=== PATIENT | female | born 1995 | race African-American/Black ===

== ENCOUNTER 2016-03-03 20:42 | Emergency (ER) | payer OTHER, SELFPAY ==
[2016-03-03] MEDS ORDERED: ALPRAZolam 0.5 MG TAB ONE (20:58)
[2016-03-03] MEDS ORDERED: AMOXicillin 250 MG CAP ONE (20:58)
[2016-03-03] MEDS ORDERED: HYDROcodone/Acetaminophen 5/325 mg Tablet ONE (20:58)
--- NOTE | 2016-03-03 21:37 | ERRECORD ---
[facility] EMERGENCY RECORD PAST MEDICAL HISTORY (20:51 BMAD) MEDICAL HISTORY: Notes: Diabetes, Hypertension, Flu vaccine not up to date, Tetanus not up to date, Pneumococcal vaccine not up to date. FEMALE SURGICAL HISTORY: Patient has no surgical history. PSYCHIATRIC HISTORY: No previous psychiatric history. SOCIAL HISTORY: Patient drinks socially, every week, Alcohol history notes: twice a week, Patient denies drug use, Patient has no smoking history. KNOWN ALLERGIES No Known Allergies (Unconfirmed) No Known Drug Allergies (Unconfirmed) CURRENT MEDICATIONS (20:52 BMAD) metFORMIN: TABLET : Strength - 500 mg : ORAL Patient Dose: UNK mg Oral once a day. ibuprofen: TABLET : Strength - 800 mg : ORAL Patient Dose: 1 tab(s) Oral every 8 hours PRN. lisinopril: TABLET : Strength - 10 mg : ORAL Patient Dose: unk mg Oral. VITAL SIGNS VITAL SIGNS: BP: 139/98, Pulse: 94, Resp: 16, Temp: 98.4 (Oral), Pain: 8, O2 sat: 98 on Room Air, Time: 03/03/2016 20:47. (20:47 BMAD) BP: 135/109, Pulse: 88, Resp: 16, Pain: 8, O2 sat: 99 on ra, Time: 03/03/2016 21:02. (21:02 BMAD) MEDICATION ADMINISTRATION SUMMARY Drug Name: HYDROcodone-acetaminophen, Dose Ordered: 5/325 mg, Route: Oral, Status: Given, Time: 21:01 03/03/2016, Drug Name: Amoxil, Dose Ordered: 500 mg, Route: Oral, Status: Given, Time: 21:01 03/03/2016, Detailed record available in Medication Service section. PROBLEM LIST No recorded problems DIAGNOSIS (20:59 MBRI) FINAL: PRIMARY: dental infection - periapical abscess. PRESCRIPTION (20:58 MBRI) acetaminophen-codeine: TABLET : 300 mg-30 mg : ORAL : Quantity: 1 Unit: tab(s) Route: ORAL Schedule: every 4 hours prn Dispense: 20 May substitute. Refills: No Refills . &a-1R&a+25V*p+0X*h3890X*c202B*c15G*c2P*p-0X&a-25V&a+1R Name: Sandy Miller : 1995 F20 MedRec: [id number] AcctNum: [id number] Prepared: ThuMar 03, 2016 21:11 by Interface Page 1 of 2 pMD [facility] EMERGENCY RECORD NOTES: No refills. PC Pen V K: TABLET : 500 mg : ORAL : Quantity: 1 Unit: tab(s) Route: ORAL Schedule: 4 times a day Dispense: 40 May substitute. Refills: No Refills . NOTES: ^s=No refills No refills. DISPOSITION PATIENT: Disposition Type: Discharge, Disposition: *Discharge Home, Condition: Good. (20:59 MBRI) Patient left the department. (21:06 BMAD) Gillespie: BMHAI=JONATHAN Rogers, Patrick MBRI=DO Singh Matthew &a-1R&a+25V*p+0X*[id number]*c202B*c15G*c2P*p-0X&a-25V&a+1R Name: Sandy Miller : 1995 F20 MedRec: [id number] AcctNum: [id number] Prepared: ThuMar 03, 2016 21:11 by Interface Page 2 of 2 pMD MTDD
--- NOTE | 2016-03-03 21:43 | PICIS ---
[facility] EMERGENCY RECORD TRIAGE (ThuMar 03, 2016 20:49 BMAD) TRIAGE NOTES: pt stating she has had dental pain associated with a headache since yesterday. (ThuMar 03, 2016 20:49 BMAD) PATIENT: NAME: Sandy Miller, AGE: 20, GENDER: female, : Thu1995, TIME OF GREET: ThuMar 03, 2016 20:42, PREFERRED LANGUAGE: [place], ETHNICITY: Not or , ECODE BILLING MAP: [facility], SSN: [id number], Zip Code: [address], KG WEIGHT: 158.30, PHONE: , , , PERSON ID: [id number], PCP: Xavier Jalloh /Salv[place]. (ThuMar 03, 2016 20:49 BMAD) COMPLAINT: Headache/Dental Pain. (ThuMar 03, 2016 20:49 BMAD) ADMISSION: URGENCY: 4 Non Urgent, ADMISSION SOURCE: Home, TRANSPORT: Walk-in, BED: ER -03. (ThuMar 03, 2016 20:49 BMAD) IMMUNIZATIONS: Flu vaccine not up to date, Tetanus not up to date, Pneumococcal vaccine not up to date. (20:51 BMAD) SIRS SCORING: Heart Rate 55-109 (0), Temp range 96.8-101.1 (0), respiratory rate 12-24 (0), Mental Status altered: no (0), Infection or Suspected Infection: No. (20:51 BMAD) TREATMENTS IN PROGRESS: Medications Given, 1600 Tylenol #3. (20:51 BMAD) PROVIDERS: TRIAGE NURSE: Patrick Rogers RN. (ThuMar 03, 2016 20:49 BMAD) VITAL SIGNS: BP 139/98, Pulse 94, Resp 16, Temp 98.4, (Oral), Pain 8, O2 Sat 98, on Room Air, Time 03/03/2016 20:47. (20:47 BMAD) PREVIOUS VISIT ALLERGIES: No Known Drug Allergies. (ThuMar 03, 2016 20:49 BMAD) No Known Drug Allergies. (20:51 BMAD) KNOWN ALLERGIES No Known Allergies (Unconfirmed) No Known Drug Allergies (Unconfirmed) CURRENT MEDICATIONS (20:52 BMAD) metFORMIN: TABLET : Strength - 500 mg : ORAL Patient Dose: UNK mg Oral once a day. ibuprofen: TABLET : Strength - 800 mg : ORAL Patient Dose: 1 tab(s) Oral every 8 hours PRN. lisinopril: TABLET : Strength - 10 mg : ORAL Patient Dose: unk mg Oral. VITAL SIGNS VITAL SIGNS: BP: 139/98, Pulse: 94, Resp: 16, Temp: 98.4 (Oral), Pain: 8, O2 sat: 98 on Room Air, Time: 03/03/2016 20:47. (20:47 BMAD) BP: 135/109, Pulse: 88, Resp: 16, Pain: 8, O2 sat: 99 on ra, Time: 03/03/2016 21:02. (21:02 BMAD) &a-1R&a+25V*p+0X*g1485W*c202B*c15G*c2P*p-0X&a-25V&a+1R Name: Sandy Miller : 1995 F20 MedRec: [id number] AcctNum: [id number] Prepared: ThuMar 03, 2016 21:18 by Interface Page 1 of 4 pMD [facility] EMERGENCY RECORD NURSING ASSESSMENT: DENTAL (20:52 BMAD) CONSTITUTIONAL: Complex assessment performed, Patient arrives ambulatory, Gait steady, History obtained from patient, Patient appears, uncomfortable, Patient cooperative, Patient alert, Oriented to person, place and time, Skin warm, Skin dry, Skin normal in color, Mucous membranes pink, Mucous membranes moist, Patient is well-groomed, Patient complains of Dental Pain, Pt stating she began having dental pain on left side yesterday associated with a headache. pt stating she has been having a foul taste in her mouth as well. PAIN: nagging pain, sharp pain, to left lower back tooth (teeth), Onset of pain x 1 day, on a scale 0-10 patient rates pain as 8. DENTAL: Dental assessment findings include mouth with, poor dental hygiene, bad breath (halitosis), foul taste in mouth, Teeth abnormal:, avulsed primary tooth (teeth), no associated malocclusion of jaw, no associated bleeding, Associated with, swelling to the left jaw, Notes: pt to see dentist next week. NURSING PROCEDURE: DISCHARGE NOTE (21:02 BMAD) DISCHARGE: Patient discharged to home, ambulating without assistance, family driving, accompanied by other family member, Summary of Care printed/ provided, Patient requested and was provided an electronic copy of Discharge Instructions, Transition record given to patient, Discharge instructions given to patient, Simple or moderate discharge teaching performed, by Patrick CASTILLO, Prescriptions given and instructions on side effects given, Name of prescription(s) given: tylenol #3, PC Pen VK, Above person(s) verbalized understanding of discharge instructions and follow-up care, Patient discharged by, Dr. Singh. BELONGINGS: Belongings and valuables with patient at time of discharge include:, Belongings remain with patient, Valuables remain with patient. VITAL SIGNS: BP: 135, / 109, Pulse: 88, Resp: 16, Pain: 8, O2 sat: 99, on: ra. MEDICATION ADMINISTRATION SUMMARY Drug Name: HYDROcodone-acetaminophen, Dose Ordered: 5/325 mg, Route: Oral, Status: Given, Time: 21:03/03/2016, Drug Name: Amoxil, Dose Ordered: 500 mg, Route: Oral, Status: Given, Time: 21:03/03/2016, Detailed record available in Medication Service section. MEDICATION SERVICE (21:01 [facility]) Amoxil: Order: Amoxil (amoxicillin trihydrate) - Dose: 500 mg : Oral Schedule: Now &a-1R&a+25V*p+0X*g7743K*c202B*c15G*c2P*p-0X&a-25V&a+1R Name: Sandy Miller Nas : 1995 F20 MedRec: [id number] AcctNum: [id number] Prepared: ThuMar 03, 2016 21:18 by Interface Page 2 of 4 pMD [facility] EMERGENCY RECORD Ordered by: Matt Singh DO Entered by: Matt Singh DO ThuMar 03, 2016 20:57 , Acknowledged by: Patrick Rogers RN ThuMar 03, 2016 20:58 Documented as given by: Patrick Rogers RN ThuMar 03, 2016 21:01 Patient, Medication, Dose, Route and Time verified prior to administration. Amount given: 500mg, Site: Medication administered P.O., Correct patient, time, route, dose and medication confirmed prior to administration, Patient advised of actions and side-effects prior to administration, Allergies confirmed and medications reviewed prior to administration. HYDROcodone-acetaminophen: Order: HYDROcodone-acetaminophen (hydrocodone bitartrate/acetaminophen) - Dose: 5/325 mg : Oral Ordered by: Matt Singh DO Entered by: Matt Singh DO ThuMar 03, 2016 20:56 , Acknowledged by: Patrick Rogers RN ThuMar 03, 2016 20:58 Documented as given by: Patrick Rogers RN ThuMar 03, 2016 21:01 Patient, Medication, Dose, Route and Time verified prior to administration. Amount given: 5/325mg, Site: Medication administered P.O., Patient appears Awake and alert- acceptable, Correct patient, time, route, dose and medication confirmed prior to administration, Patient advised of actions and side-effects prior to administration, Allergies confirmed and medications reviewed prior to administration, Patient in position of comfort, Side rails up, Cart in lowest position, Family at bedside. PAST MEDICAL HISTORY (20:51 BMAD) MEDICAL HISTORY: Notes: Diabetes, Hypertension, Flu vaccine not up to date, Tetanus not up to date, Pneumococcal vaccine not up to date. FEMALE SURGICAL HISTORY: Patient has no surgical history. PSYCHIATRIC HISTORY: No previous psychiatric history. SOCIAL HISTORY: Patient drinks socially, every week, Alcohol history notes: twice a week, Patient denies drug use, Patient has no smoking history. EVENTS TRANSFER: Triage to Emergency Emergency Room -03. (ThuMar 03, 2016 20:49 BMAD) Removed from Emergency Emergency Room -03. (21:06 BMAD) PROBLEM LIST No recorded problems DIAGNOSIS (20:59 MBRI) FINAL: PRIMARY: dental infection - periapical abscess. DISPOSITION &a-1R&a+25V*p+0X*l5350P*c202B*c15G*c2P*p-0X&a-25V&a+1R Name: Sandy Miller : 1995 F20 MedRec: [id number] AcctNum: [id number] Prepared: ThuMar 03, 2016 21:18 by Interface Page 3 of 4 D [facility] EMERGENCY RECORD PATIENT: Disposition Type: Discharge, Disposition: *Discharge Home, Condition: Good. (20:59 MBRI) Patient left the department. (21:06 BMAD) INSTRUCTION (20:59 MBRI) DISCHARGE: DENTAL ABSCESS. FOLLOWUP: [facility], /Joey Franco, [address] [place] [address], , Follow up with Primary Care Physician as needed. SPECIAL: Please return for any further issues or concerns, we would be happy to see you. We hope you feel better soon. Follow-up with your primary physician as needed and with a dentist of your choosing as soon as possible. Tylenol or Advil for Pain May return to work. PRESCRIPTION (20:58 MBRI) acetaminophen-codeine: TABLET : 300 mg-30 mg : ORAL : Quantity: 1 Unit: tab(s) Route: ORAL Schedule: every 4 hours prn Dispense: 20 May substitute. Refills: No Refills . NOTES: No refills. PC Pen V K: TABLET : 500 mg : ORAL : Quantity: 1 Unit: tab(s) Route: ORAL Schedule: 4 times a day Dispense: 40 May substitute. Refills: No Refills . NOTES: ^s=No refills No refills. IMAGING (21:14 BMAD) *SUPPLY CHARGE SHEET: Image captured from scanner. *DISCHARGE INSTRUCTIONS RECEIPT: Image captured from scanner. Gillespie: BMAD=JONATHAN Rogers Blake MBRI=DO Singh Matthew &a-1R&a+25V*p+0X*t5386I*c202B*c15G*c2P*p-0X&a-25V&a+1R Name: Sandy Miller : 1995 F20 MedRec: [id number] AcctNum: [id number] Prepared: ThuMar 03, 2016 21:18 by Interface Page 4 of 4 pMD [facility] MEDICATION RECONCILIATION You were seen in the Emergency Department on: ThuMar 03, 2016 KNOWN ALLERGIES No Known Allergies (Unconfirmed) No Known Drug Allergies (Unconfirmed) MEDICATIONS GIVEN WHILE IN THE EMERGENCY DEPARTMENT HYDROcodone-acetaminophen (hydrocodone bitartrate/acetaminophen) - Dose: 5/325 milligram(s) : Oral Amoxil (amoxicillin trihydrate) - Dose: 500 milligram(s) : Oral HOME MEDICATIONS CONTINUE PRESCRIBED ibuprofen : TABLET : Strength - 800 mg : ORAL Continue as prescribed Patient had been takin tab(s) Oral every 8 hours PRN. lisinopril : TABLET : Strength - 10 mg : ORAL Continue as prescribed Patient had been taking: unk mg Oral. metFORMIN : TABLET : Strength - 500 mg : ORAL Continue as prescribed Patient had been taking: UNK mg Oral once a day. Notes from the emergency department Reviewed with patient PRESCRIPTIONS (2) Printed (2) acetaminophen-codeine : TABLET : 300 mg-30 mg : ORAL Quantity: 1, Unit: tab(s), Route: ORAL, Schedule: every 4 hours prn, Dispense: 20 &a-1R&a+25V*p+0X*q6693C*c202B*c15G*c2P*p-0X&a-25V&a+1R Name: Sandy Miller : 1995 F20 MedRec: [id number] AcctNum: [id number] Prepared: ThuMar 03, 2016 21:18 by Interface Thu OMALLEY
== END 2016-03-03 21:01 | disposition home or self-care (01) ==
LOC: BURERS 20:42
DX: K04.7 Periapical abscess without sinus (principal); E11.9 Type 2 diabetes mellitus without complications; I10 Essential (primary) hypertension; Z79.899 Other long term (current) drug therapy
CPT/HCPCS: 99282

== ENCOUNTER 2016-03-26 09:08 | Emergency (ER) | payer SELFPAY ==
[2016-03-26] MEDS ORDERED: Benzonatate 100 MG CAP ONE (09:19)
[2016-03-26] MEDS ORDERED: Dexamethasone 4 mg/ml Vial ONE (09:19)
--- NOTE | 2016-03-26 09:34 | ERRECORD ---
[facility] EMERGENCY RECORD HPI COUGH (09:21 [facility]) CHIEF COMPLAINT: Patient presents for evaluation of cough, non-productive. HISTORIAN: History provided by patient, 20F presents with complaints of 2 days of cough with pleuritic chest pain, and headache during coughing fits. Also reports 1 day of diarrhea. Denies abdominal pain, denies changes in urinary habits. Reports sore throat as well. LOCATION: Symptoms are generalized. QUALITY: Pain is dull in nature, described as aching. TIME COURSE: Gradual onset of symptoms, Symptoms are worsening. ASSOCIATED WITH: Associated with diarrhea, Associated with upper respiratory infection. EXACERBATED BY: Patient's condition exacerbated by nothing. RELIEVED BY: Patient's condition relieved by over the counter medications. ROS (09:23 [facility]) CONSTITUTIONAL: Negative constitutional review of systems, Historian denies chills, denies fever. ENT: Historian reports sore throat. CARDIOVASCULAR: Negative cardiovascular review of systems, Historian denies chest pain, denies palpitations. RESPIRATORY: Historian reports cough. GI: Historian reports diarrhea. GENITOURINARY FEMALE: Negative genitourinary review of systems, Historian denies dysuria, denies frequency. SKIN: Negative skin review of systems, Historian denies rash, denies skin changes. NEUROLOGIC: Negative neurologic review of systems, Historian denies headache. HEMO/LYMPHATIC: Normal hematologic/lymphatic system review, Historian denies abnormal blood clotting. PAST MEDICAL HISTORY (09:17 BGAR) MEDICAL HISTORY: Notes: Diabetes, Hypertension, Flu vaccine not up to date, Tetanus not up to date, Pneumococcal vaccine not up to date. FEMALE SURGICAL HISTORY: Patient has no surgical history. PSYCHIATRIC HISTORY: No previous psychiatric history. SOCIAL HISTORY: Patient drinks socially, Patient denies drug use, Patient has no smoking history. KNOWN ALLERGIES No Known Allergies (Unconfirmed) No Known Drug Allergies CURRENT MEDICATIONS (09:15 BGAR) metFORMIN: TABLET : Strength - 500 mg : ORAL &a-1R&a+25V*p+0X*j7204M*c202B*c15G*c2P*p-0X&a-25V&a+1R Name: Sandy Miller : 1995 F20 MedRec: [id number] AcctNum: [id number] Prepared: ThuMar 26, 2016 09:37 by Interface Page 1 of 3 pMD [facility] EMERGENCY RECORD Patient Dose: UNK mg Oral once a day. ibuprofen: TABLET : Strength - 800 mg : ORAL Patient Dose: 1 tab(s) Oral every 8 hours PRN. lisinopril: TABLET : Strength - 10 mg : ORAL Patient Dose: unk mg Oral. VITAL SIGNS (09:13 BGGA) VITAL SIGNS: BP: 111/89, Pulse: 111, Resp: 22, Temp: 99.9 (Oral), Pain: 0, O2 sat: 98 on Room Air, Time: 03/26/2016 09:13. PHYSICAL EXAM CONSTITUTIONAL: Pulse, tachycardic, Vital signs reviewed, Patient afebrile, Blood pressure normal, Respiratory rate normal, Patient appears non toxic, Patient appears pain free, Patient alert and oriented to person, place and time. (09:23 JJA) ENT: ENT exam normal. (09:24 JJAC) NECK: Neck exam normal, Neck exam included findings of normal range of motion, Trachea midline, no meningeal signs, no cervical adenopathy, no tenderness. (09:23 JJAC) RESPIRATORY CHEST: Respiratory and chest exam normal, Respiratory exam included findings of no respiratory distress, Breath sounds clear. (09:23 JJAC) CARDIOVASCULAR: Cardiovascular assessment normal, Cardiovascular exam included findings of heart rate regular rate and rhythm, Heart sounds normal. (09:23 JJAC) ABDOMEN FEMALE: Abdominal exam included findings of abdomen nontender, Bowel sounds normal, no distension, no mass, no pulsatile masses, no peritoneal signs, no rigidity, no guarding, no rebound, Rovsing's sign absent. (09:23 JJAC) BACK: Back exam normal, Back exam included findings of normal inspection, range of motion normal, no tenderness. (09:23 JJAC) NEURO: Neuro exam normal, Neuro exam findings include patient oriented to person, place and time, Speech normal, Gait normal. (09:23 JJAC) SKIN: Skin exam normal, Skin exam included findings of skin warm, dry, and normal in color, no rash. (09:23 JJAC) MEDICATION ADMINISTRATION SUMMARY Drug Name: Decadron oral, Dose Ordered: 10 mg, Route: Oral, Status: Given, Time: 09:25 03/26/2016, Drug Name: Elizabet Abbott, Dose Ordered: 100 mg, Route: Oral, Status: Given, Time: 09:24 03/26/2016, Detailed record available in Medication Service section. DOCTOR NOTES TEXT: Patient presented with signs and symptoms consistent &a-1R&a+25V*p+0X*v0437Z*c202B*c15G*c2P*p-0X&a-25V&a+1R Name: Sandy Miller : 1995 F20 MedRec: [id number] AcctNum: [id number] Prepared: ThuMar 26, 2016 09:37 by Interface Page 2 of 3 pMD [facility] EMERGENCY RECORD with viral syndrome. well appearing, non-toxic patient without evidence of concerning bacterial illness such as meningitis or pneumonia that would require further workup or investigation. Tolerating oral intake without difficulty. Appropriate for outpatient management with oral fluids and antipyretics. Needs follow up with primary physician in the next 2-3 days for re-evaluation. (09:24 [facility]) PATIENT STATUS: Patient has improved since arrival to emergency department. (09: [facility]) PATIENT PLAN: The patient will be discharged, The patient will follow up with primary care physician. (09: [facility]) PROBLEM LIST No recorded problems DIAGNOSIS (: [facility]) FINAL: PRIMARY: Acute bronchitis. PRESCRIPTION (09: [facility]) Elizabet Abbott: CAPSULE (HARD, SOFT, ETC.) : 100 mg : ORAL : Quantity: 1 Unit: tab(s) Route: ORAL Schedule: 3 times a day Dispense: 15 May substitute. Refills: No Refills . NOTES: No refills. DISPOSITION PATIENT: Disposition Type: Discharge, Disposition: *Discharge Home. (09: [facility]) Patient left the department. (09:31 LGIB) Gillespie: BGAR=JONATHAN Phillips, Berna JJAC=MD Mccall Jason LGIB=JONATHAN Melchor, Renae &a-1R&a+25V*p+0X*z5067W*c202B*c15G*c2P*p-0X&a-25V&a+1R Name: Sandy Miller : 1995 F20 MedRec: [id number] AcctNum: [id number] Prepared: [place] Mar 26, 2016 09:37 by Interface Page 3 of 3 pMD MTDD
--- NOTE | 2016-03-26 09:39 | PICIS ---
[facility] EMERGENCY RECORD TRIAGE (09:14 BGAR) TRIAGE NOTES: Pt reports cough, diarrhea, headache x 4 days. (09:14 BGAR) PATIENT: NAME: Sandy Miller, AGE: 20, GENDER: female, : Thu1995, TIME OF GREET: ThuMar 26, 2016 09:09, PREFERRED LANGUAGE: Greek, ETHNICITY: Not or , ECODE BILLING MAP: [facility], SSN: [id number], Zip Code: [address], KG WEIGHT: [phone] (est.), , , PERSON ID: [id number], PAYMENT: [employer] Self Pay, PCP: Export Joey. (09:14 BGAR) PHONE: . (09:21) COMPLAINT: Cough, headache, diarrhea. (09:14 BGAR) ADMISSION: URGENCY: 4 Non Urgent, ADMISSION SOURCE: Home, TRANSPORT: CAR, BED: ER -02. (09:14 BGAR) ASSESSMENT: Assessment: patient ambulatory to er bed 2. pt c/o cough, diarrhea, and headache, Symptoms began 4 days ago. (09:17 BGAR) PAIN: No complaint of pain. (09:17 BGAR) SIRS SCORING: Heart Rate 110-139 (2), Temp range 96.8-101.1 (0), respiratory rate 12-24 (0), Mental Status altered: no (0), Infection or Suspected Infection: No. (09:17 BGAR) TRIAGE SCREENING: Patient denies suicidal ideation, Patient denies presence of domestic violence. (09:17 BGAR) LMP: LMP: Unknown. (09:17 BGAR) PROVIDERS: TRIAGE NURSE: Berna Phillips RN. (09:14 BGAR) VITAL SIGNS: BP 111/89, Pulse 111, Resp 22, Temp 99.9, (Oral), Pain 0, O2 Sat 98, on Room Air, Time 03/26/2016 09:13. (09:13 BGAR) KNOWN ALLERGIES No Known Allergies (Unconfirmed) No Known Drug Allergies CURRENT MEDICATIONS (09:15 BGAR) metFORMIN: TABLET : Strength - 500 mg : ORAL Patient Dose: UNK mg Oral once a day. ibuprofen: TABLET : Strength - 800 mg : ORAL Patient Dose: 1 tab(s) Oral every 8 hours PRN. lisinopril: TABLET : Strength - 10 mg : ORAL Patient Dose: unk mg Oral. VITAL SIGNS (09:13 BGAR) VITAL SIGNS: BP: 111/89, Pulse: 111, Resp: 22, Temp: 99.9 (Oral), Pain: 0, O2 sat: 98 on Room Air, Time: 03/26/2016 09:13. NURSING ASSESSMENT: RESPIRATORY /CHEST (09:17 BGAR) CONSTITUTIONAL: Patient arrives ambulatory, Gait steady, History obtained from patient, Patient appears comfortable, Patient &a-1R&a+25V*p+0X*[id number]*c202B*c15G*c2P*p-0X&a-25V&a+1R Name: Sandy Miller : 1995 F20 MedRec: [id number] AcctNum: [id number] Prepared: ThuMar 26, 2016 09:37 by Interface Page 1 of 5 pMD [facility] EMERGENCY RECORD cooperative, Patient alert, Oriented to person, place and time, Skin warm, Skin dry, Skin normal in color, Mucous membranes pink, Mucous membranes moist. RESPIRATORY/CHEST: Breath sounds clear, Respiratory assessment findings include respiratory effort easy, Respirations regular, Conversing normally, Neck and chest exam findings include trachea midline, Chest expansion equal, Chest movement symmetrical, no signs of distress, Associated with cough, non-productive. ENT: Ear assessment findings include ear normal to inspection, Nasal assessment findings include nose normal to inspection, Sinuses normal, Nasal mucosa normal, Mouth and throat assessment findings include mouth inspection normal, Uvula normal, Tonsils normal, Mucous membranes pink, and moist, Able to swallow, Speech normal. SAFETY: Side rails up, Cart/Stretcher in lowest position, Family at bedside, Call light within reach, Hospital ID band on. NURSING PROCEDURE: DISCHARGE NOTE (09:30 LGIB) DISCHARGE: Patient discharged to home, ambulating without assistance, family driving, accompanied by other family member, Summary of Care printed/ provided, Patient requested and was provided an electronic copy of Discharge Instructions, Discharge instructions given to patient, Simple or moderate discharge teaching performed, Prescriptions given and instructions on side effects given, Above person(s) verbalized understanding of discharge instructions and follow-up care, Patient treated and evaluated by physician. BELONGINGS: Belongings and valuables with patient at time of discharge include:, Belongings remain with patient, Valuables remain with patient. MEDICATION ADMINISTRATION SUMMARY Drug Name: Decadron oral, Dose Ordered: 10 mg, Route: Oral, Status: Given, Time: 09:25 03/26/2016, Drug Name: Tessalon Perles, Dose Ordered: 100 mg, Route: Oral, Status: Given, Time: 09:24 03/26/2016, Detailed record available in Medication Service section. MEDICATION SERVICE Decadron oral: Order: Decadron oral (dexamethasone) - Dose: 10 mg : Oral Ordered by: Tai Mccall MD Entered by: Tai Mccall MD ThuMar 26, 2016 09:19 , Acknowledged by: Berna Phillips RN ThuMar 26, 2016 09:21 Documented as given by: Berna Phillips RN ThuMar 26, 2016 09:25 Patient, Medication, Dose, Route and Time verified prior to administration. Amount given: 10 mg, Patient appears Awake and alert- acceptable, Correct patient, time, route, dose and medication confirmed prior to administration, Patient advised of actions and side-effects prior to &a-1R&a+25V*p+0X*t5504C*c202B*c15G*c2P*p-0X&a-25V&a+1R Name: Sandy Miller : 1995 F20 MedRec: [id number] AcctNum: [id number] Prepared: ThuMar 26, 2016 09:37 by Interface Page 2 of 5 pMD [facility] EMERGENCY RECORD administration, Allergies confirmed and medications reviewed prior to administration, Patient in position of comfort, Side rails up, Cart in lowest position, Family at bedside. Tessalon Perles: Order: Tessalon Perles (benzonatate) - Dose: 100 mg : Oral Ordered by: Tai Mccall MD Entered by: Tai Mccall MD ThuMar 26, 2016 09:19 , Acknowledged by: Berna Phillips RN ThuMar 26, 2016 09:21 Documented as given by: Berna Phillips RN ThuMar 26, 2016 09:24 Patient, Medication, Dose, Route and Time verified prior to administration. Patient appears Awake and alert- acceptable, Correct patient, time, route, dose and medication confirmed prior to administration, Patient advised of actions and side-effects prior to administration, Allergies confirmed and medications reviewed prior to administration. HPI COUGH (09:21 [facility]) CHIEF COMPLAINT: Patient presents for evaluation of cough, non-productive. HISTORIAN: History provided by patient, 20F presents with complaints of 2 days of cough with pleuritic chest pain, and headache during coughing fits. Also reports 1 day of diarrhea. Denies abdominal pain, denies changes in urinary habits. Reports sore throat as well. LOCATION: Symptoms are generalized. QUALITY: Pain is dull in nature, described as aching. TIME COURSE: Gradual onset of symptoms, Symptoms are worsening. ASSOCIATED WITH: Associated with diarrhea, Associated with upper respiratory infection. EXACERBATED BY: Patient's condition exacerbated by nothing. RELIEVED BY: Patient's condition relieved by over the counter medications. ROS (09:23 [facility]) CONSTITUTIONAL: Negative constitutional review of systems, Historian denies chills, denies fever. ENT: Historian reports sore throat. CARDIOVASCULAR: Negative cardiovascular review of systems, Historian denies chest pain, denies palpitations. RESPIRATORY: Historian reports cough. GI: Historian reports diarrhea. GENITOURINARY FEMALE: Negative genitourinary review of systems, Historian denies dysuria, denies frequency. SKIN: Negative skin review of systems, Historian denies rash, denies skin changes. NEUROLOGIC: Negative neurologic review of systems, Historian denies headache. HEMO/LYMPHATIC: Normal hematologic/lymphatic system review, Historian denies abnormal blood clotting. PAST MEDICAL HISTORY (09:17 BGME) &a-1R&a+25V*p+0X*r6436S*c202B*c15G*c2P*p-0X&a-25V&a+1R Name: Sandy Miller : 1995 F20 MedRec: [id number] AcctNum: [id number] Prepared: ThuMar 26, 2016 09:37 by Interface Page 3 of 5 pMD [facility] EMERGENCY RECORD MEDICAL HISTORY: Notes: Diabetes, Hypertension, Flu vaccine not up to date, Tetanus not up to date, Pneumococcal vaccine not up to date. FEMALE SURGICAL HISTORY: Patient has no surgical history. PSYCHIATRIC HISTORY: No previous psychiatric history. SOCIAL HISTORY: Patient drinks socially, Patient denies drug use, Patient has no smoking history. PHYSICAL EXAM CONSTITUTIONAL: Pulse, tachycardic, Vital signs reviewed, Patient afebrile, Blood pressure normal, Respiratory rate normal, Patient appears non toxic, Patient appears pain free, Patient alert and oriented to person, place and time. (09:23 [facility]) ENT: ENT exam normal. (09:24 JJA) NECK: Neck exam normal, Neck exam included findings of normal range of motion, Trachea midline, no meningeal signs, no cervical adenopathy, no tenderness. (09:23 JJA) RESPIRATORY CHEST: Respiratory and chest exam normal, Respiratory exam included findings of no respiratory distress, Breath sounds clear. (09: JJA) CARDIOVASCULAR: Cardiovascular assessment normal, Cardiovascular exam included findings of heart rate regular rate and rhythm, Heart sounds normal. (09: JJA) ABDOMEN FEMALE: Abdominal exam included findings of abdomen nontender, Bowel sounds normal, no distension, no mass, no pulsatile masses, no peritoneal signs, no rigidity, no guarding, no rebound, Rovsing's sign absent. (09: JJA) BACK: Back exam normal, Back exam included findings of normal inspection, range of motion normal, no tenderness. (09: JJA) NEURO: Neuro exam normal, Neuro exam findings include patient oriented to person, place and time, Speech normal, Gait normal. (09:23 JJA) SKIN: Skin exam normal, Skin exam included findings of skin warm, dry, and normal in color, no rash. (09:23 JJA) EVENTS TRANSFER: Triage to Emergency Emergency Room -02. (ThuMar 26, 2016 09:14 BGAR) Removed from Emergency Emergency Room -02. (09:31 LGIB) DOCTOR NOTES TEXT: Patient presented with signs and symptoms consistent with viral syndrome. well appearing, non-toxic patient without evidence of concerning bacterial illness such as meningitis or pneumonia that would require further workup or investigation. Tolerating oral intake without difficulty. Appropriate for outpatient management with oral fluids and antipyretics. Needs follow up with primary physician in the next 2-3 days for re-evaluation. (09:24 &a-1R&a+25V*p+0X*h0979N*c202B*c15G*c2P*p-0X&a-25V&a+1R Name: Sandy Miller : 1995 1 MedRec: [id number] AcctNum: [id number] Prepared: ThuMar 26, 2016 09:37 by Interface Page 4 of 5 pMD [facility] EMERGENCY RECORD JJAC) PATIENT STATUS: Patient has improved since arrival to emergency department. (: JJA) PATIENT PLAN: The patient will be discharged, The patient will follow up with primary care physician. (: JJA) PROBLEM LIST No recorded problems DIAGNOSIS (: [facility]) FINAL: PRIMARY: Acute bronchitis. DISPOSITION PATIENT: Disposition Type: Discharge, Disposition: *Discharge Home. (: JJAC) Patient left the department. (:31 LGIB) INSTRUCTION (: [facility]) DISCHARGE: BRONCHITIS, NO ABX (ADULT). SPECIAL: Drink more water. Follow up with your regular doctor. PRESCRIPTION (: [facility]) Tessalon Perles: CAPSULE (HARD, SOFT, ETC.) : 100 mg : ORAL : Quantity: 1 Unit: tab(s) Route: ORAL Schedule: 3 times a day Dispense: 15 May substitute. Refills: No Refills . NOTES: No refills. IMAGING *DISCHARGE INSTRUCTIONS RECEIPT: Image captured from scanner. (09:30 LGIB) *SUPPLY CHARGE SHEET: Image captured from scanner. (09:31 LGIB) ADMIN (: [facility]) DIGITAL SIGNATURE: MD Mccall Jason. Gillespie: BGAR=JONATHAN Phillips, [place] JJAC=MD Mccall Jason LGIB=JONATHAN Melchor, Renae &a-1R&a+25V*p+0X*[id number]*c202B*c15G*c2P*p-0X&a-25V&a+1R Name: Sandy Miller : 1995 F20 MedRec: [id number] AcctNum: [id number] Prepared: ThuMar 26, 2016 09:37 by Interface Page 5 of 5 pMD MTDD
== END 2016-03-26 09:29 | disposition home or self-care (01) ==
LOC: BURERS 09:08
DX: J20.9 Acute bronchitis, unspecified (principal); I10 Essential (primary) hypertension; E11.9 Type 2 diabetes mellitus without complications; Z79.84 Long term (current) use of oral hypoglycemic drugs; Z79.899 Other long term (current) drug therapy
CPT/HCPCS: 99283; J1100

== ENCOUNTER 2016-03-27 20:36 | Emergency (ER) | payer SELFPAY ==
[2016-03-27] MEDS ORDERED: Benzonatate 100 MG CAP ONE (21:10)
[2016-03-27] MEDS ORDERED: Ondansetron ODT 4 MG TAB ONE (21:10)
[2016-03-27] MEDS ORDERED: Acetaminophen 325 MG TAB ONE (21:18)
[2016-03-27] MEDS ORDERED: methylPREDNISolone Sod Succ/PF 125 MG/2 ML VIAL ONE (21:44)
[2016-03-27] MEDS ORDERED: Oseltamivir 75 MG CAP ONE (21:49)
[2016-03-27] MEDS ORDERED: Acetaminophen/Codeine 120-12MG/5 ML UDCUP ONE (21:49)
== END 2016-03-27 21:52 | disposition home or self-care (01) ==
LOC: BURERS 20:36
DX: J11.1 Influenza due to unidentified influenza virus with other respiratory manifestations (principal); I10 Essential (primary) hypertension; E11.9 Type 2 diabetes mellitus without complications; Z79.84 Long term (current) use of oral hypoglycemic drugs; Z79.899 Other long term (current) drug therapy
CPT/HCPCS: 96372; J2930; Q0162

== ENCOUNTER 2016-03-30 09:51 | Emergency (ER) | payer SELFPAY ==
[2016-03-30] MEDS ORDERED: Lidocaine 1% w/Epinephrine 1:100K 30 ML VIAL ONE (10:08)
[2016-03-30] MEDS ORDERED: HYDROcodone/Acetaminophen 10/325 mg Tablet ONE (10:28)
[2016-03-30] MEDS ORDERED: Cephalexin 250 MG CAP ONE (10:28)
== END 2016-03-30 10:35 | disposition home or self-care (01) ==
LOC: BURERS 09:51
DX: N76.4 Abscess of vulva (principal); E11.9 Type 2 diabetes mellitus without complications; I10 Essential (primary) hypertension
CPT/HCPCS: 56405; J2001

== ENCOUNTER 2016-04-02 17:24 | Emergency (ER) | payer OTHER, SELFPAY ==
[2016-04-02] MEDS ORDERED: Fentanyl 100 MCG/2 ML VIAL ONE (18:43)
[2016-04-02] MEDS ORDERED: metroNIDAZOLE 500 MG/100 ML BAG ONE (18:44)
[2016-04-02] MEDS ORDERED: Ketorolac Tromethamine 30 MG/ML VIAL ONE (18:44)
[2016-04-02 18:46] LABS: ALT (SGPT) 29 U/L (0-55); AST (SGOT) 25 U/L (5-34); Alkaline Phosphatase 83 U/L (40-150); Anion Gap 15 mmol/L (10-20); BUN (Urea Nitrogen) 3 mg/dL (7.0-18.7); Bilirubin, Total 0.9 mg/dL (0.2-1.2); Calc. Creatinine Clearance 0 mL/min (70-130); Carbon Dioxide 23 mmol/L (22-29); Chloride 98 mmol/L (98-107); Estimated GFR-MDRD Greater than 90; Globulin 4.7 g/dL (2.4-3.5); Protein, Total 8.3 g/dL (6.0-8.3)
[2016-04-02 18:57] LABS: Hematocrit 39.3 % (36.0-47.0); Mean Platelet Volume 10.4 fL (7.4-10.4); Microcytosis SLIGHT = 6-15 cells (100X) (0-5/hpf); Neutrophil 69 % (42-75); Nucleated RBC 1 % (0); Red Blood Cell (RBC) Count 5.15 mill/uL (4.20-5.40); White Blood Cell (WBC) Count 17.7 thou/uL (4.8-10.8)
[2016-04-02 19:09] LABS: Blood, Urine Large (Negative); Glucose, Urine (Dipstick) 500 mg/dL (Negative); Ketone, Urine Trace mg/dL (Negative); Nitrite Negative (Negative); Protein, Urine (Dipstick) > or equal to 300 mg/dL (Neg-Trace); Urobilinogen > or = 8.0 mg/dL (0.2-1.0)
[2016-04-02 19:11] LABS: Bilirubin Negative (Negative)
[2016-04-02 19:12] LABS: Bacteria/HPF 2+ HPF (None Seen); WBC/HPF 21-50 HPF (0-3)
[2016-04-02] MEDS ORDERED: Acetaminophen 500 MG TAB ONE (19:24)
== END 2016-04-02 21:40 | disposition short-term general hospital (02) ==
LOC: BURERS 17:24
DX: N76.4 Abscess of vulva (principal)
CPT/HCPCS: 36415; 80053; 81003; 81015; 83605; 85025; 87040; 87086; 96365; 96375; J1885; J3010; J3370

== ENCOUNTER 2016-11-11 19:27 | Emergency (ER) | payer MEDICAID, SELFPAY ==
[2016-11-11] MEDS ORDERED: Ibuprofen 200 MG TAB ONE (19:53)
[2016-11-11] MEDS ORDERED: Dexamethasone 4 mg/ml Vial ONE ×2 (19:53→19:54)
[2016-11-11] MEDS ORDERED: Benzonatate 100 MG CAP ONE (19:53)
== END 2016-11-11 20:02 | disposition home or self-care (01) ==
LOC: BURERS 19:27
DX: J06.9 Acute upper respiratory infection, unspecified (principal); K04.7 Periapical abscess without sinus; I10 Essential (primary) hypertension; E11.9 Type 2 diabetes mellitus without complications; Z79.899 Other long term (current) drug therapy; Z79.84 Long term (current) use of oral hypoglycemic drugs
CPT/HCPCS: 99283; J1100

== ENCOUNTER 2017-02-02 13:23 | Emergency (ER) | payer SELFPAY ==
[2017-02-02] MEDS ORDERED: Diazepam 10 MG/2 ML SYRINGE ONE (13:36)
[2017-02-02] MEDS ORDERED: Ketorolac Tromethamine 30 MG/ML VIAL ONE (13:36)
[2017-02-02 14:11] LABS: Bilirubin Negative (Negative); Blood, Urine Trace (Negative); Clarity Clear (Clear); Glucose, Urine (Dipstick) Negative (Negative); Leukocyte Negative (Negative); Nitrite Negative (Negative); Protein, Urine (Dipstick) Negative (Neg-Trace); Urobilinogen 0.2 mg/dL (0.2-1.0)
[2017-02-02 14:12] LABS: Pregnancy Test - Urine (BHCG) Negative (Negative); Pregu Control Background? CLEAR/WHITE (CLR/WHITE); Pregu Control Bar Appear? YES (CONTROL BAR)
[2017-02-02 14:18] LABS: RBC/HPF 0-3 HPF (0-3); WBC/HPF 0-3 HPF (0-3)
[2017-02-02 14:19] LABS: Bacteria/HPF Rare-Few HPF (None Seen); Crystals/HPF None Seen HPF (Negative); Hyaline Casts/LPF NONE SEEN LPF (0-3 Hyaline); Other Casts/LPF None Seen LPF (0-3 Hyaline); Oval Fat Bodies/HPF None Seen HPF (None Seen); Renal Epithelial None Seen HPF (0-3); Sperm/HPF None Seen HPF (None Seen); Squamous Epithelial 0-3 HPF (0-3); Transitional Epithelial NONE SEEN HPF (0-3); Trichomonas/HPF None Seen HPF (None Seen); Yeast-All Forms None Seen HPF (None Seen)
[2017-02-02] MEDS ORDERED: Acetaminophen 500 MG TAB ONE (14:53)
== END 2017-02-02 15:31 | disposition home or self-care (01) ==
LOC: BURERS 13:23
DX: B34.9 Viral infection, unspecified (principal); E11.9 Type 2 diabetes mellitus without complications; I10 Essential (primary) hypertension; Z79.84 Long term (current) use of oral hypoglycemic drugs; Z79.899 Other long term (current) drug therapy
CPT/HCPCS: 36416; 51701; 81003; 81015; 81025; 96374; 96375; J1885; J3360

== ENCOUNTER 2017-02-20 15:54 | Emergency (ER) | payer SELFPAY ==
--- NOTE | 2017-02-20 20:53 | RAD ---
SOFT TISSUE NECK 02/20/17 No gross opaque foreign bodies were seen. Calcified arytenoid cartilages are evident. The prevertebra l soft tissues are normal in thickness. There is no enlargement of the epiglottis. IMPRESSION: No acute findings. If symptoms continue, direct visualization with endoscopy might be needed. POS: HOME
== END 2017-02-20 16:44 | disposition home or self-care (01) ==
LOC: BURERS 15:54
DX: J02.9 Acute pharyngitis, unspecified (principal); E11.9 Type 2 diabetes mellitus without complications; I10 Essential (primary) hypertension; Z79.899 Other long term (current) drug therapy; Z79.84 Long term (current) use of oral hypoglycemic drugs
CPT/HCPCS: 70360

== ENCOUNTER 2017-08-29 16:17 | Emergency (ER) | payer BC, SELFPAY | END 2017-08-29 16:43 | disposition home or self-care (01) | LOC: BURERS 16:17 | DX: K04.7 Periapical abscess without sinus (principal); E11.9 Type 2 diabetes mellitus without complications; I10 Essential (primary) hypertension; Z79.84 Long term (current) use of oral hypoglycemic drugs; Z79.899 Other long term (current) drug therapy | CPT/HCPCS: 99283 ==

== ENCOUNTER 2017-12-09 22:24 | Emergency (ER) | payer BC ==
[2017-12-09] MEDS ORDERED: AMOXicillin 250 MG CAP ONE (23:24)
[2017-12-09] MEDS ORDERED: HYDROcodone/Acetaminophen 5/325 mg Tablet ONE (23:24)
== END 2017-12-10 00:35 | disposition home or self-care (01) ==
LOC: BURERS 22:24
DX: K02.9 Dental caries, unspecified (principal); E11.9 Type 2 diabetes mellitus without complications; I10 Essential (primary) hypertension; G43.909 Migraine, unspecified, not intractable, without status migrainosus; Z79.84 Long term (current) use of oral hypoglycemic drugs; Z79.899 Other long term (current) drug therapy
CPT/HCPCS: 99282

== ENCOUNTER 2018-04-03 10:53 | Emergency (ER) | payer BC ==
[2018-04-03] MEDS ORDERED: Benzonatate 100 MG CAP ONE (11:11)
--- NOTE | 2018-04-03 13:50 | RAD ---
CHEST 2 VIEWS: Date: 04/03/18 Comparison is made with a 02/05/17 study. FINDINGS: The heart is normal in size and the lungs are clear. There is no sign of pneumonia, pleural effusion, or other acute pulmonary process. The mediastinum appears normal. IMPRESSION: No acute thoracic findings. POS: HOME
== END 2018-04-03 11:45 | disposition home or self-care (01) ==
LOC: BURERS 10:53
DX: Z48.817 Encounter for surgical aftercare following surgery on the skin and subcutaneous tissue (principal); J45.909 Unspecified asthma, uncomplicated; F17.210 Nicotine dependence, cigarettes, uncomplicated; Z79.899 Other long term (current) drug therapy
CPT/HCPCS: 71046; 87804

== ENCOUNTER 2018-05-06 17:18 | Emergency (ER) | payer BC, SELFPAY ==
[2018-05-06] MEDS ORDERED: Ondansetron ODT 4 MG TAB ONE (17:34)
[2018-05-06] MEDS ORDERED: Acetaminophen 500 MG TAB ONE (17:34)
== END 2018-05-06 18:22 | disposition home or self-care (01) ==
LOC: BURERS 17:18
DX: J11.1 Influenza due to unidentified influenza virus with other respiratory manifestations (principal); I10 Essential (primary) hypertension; E11.9 Type 2 diabetes mellitus without complications; G43.909 Migraine, unspecified, not intractable, without status migrainosus; F17.200 Nicotine dependence, unspecified, uncomplicated; Z79.84 Long term (current) use of oral hypoglycemic drugs; Z79.899 Other long term (current) drug therapy
CPT/HCPCS: 99283; Q0162

== ENCOUNTER 2019-09-27 19:44 | Emergency (ER) | payer OTHER | END 2019-09-27 20:32 | disposition home or self-care (01) | LOC: BURERS 19:44 | DX: M25.561 Pain in right knee (principal); E11.9 Type 2 diabetes mellitus without complications; I10 Essential (primary) hypertension; G43.909 Migraine, unspecified, not intractable, without status migrainosus; F41.9 Anxiety disorder, unspecified; F17.210 Nicotine dependence, cigarettes, uncomplicated; Z79.84 Long term (current) use of oral hypoglycemic drugs; Z79.899 Other long term (current) drug therapy | CPT/HCPCS: 99283 ==

== ENCOUNTER 2020-06-20 21:54 | Emergency (ER) | payer OTHER ==
[2020-06-20] MEDS ORDERED: predniSONE 20 MG TAB ONE (22:56)
== END 2020-06-20 23:10 | disposition home or self-care (01) ==
LOC: BURERS 21:54
DX: J06.9 Acute upper respiratory infection, unspecified (principal); E11.9 Type 2 diabetes mellitus without complications; I10 Essential (primary) hypertension; F17.210 Nicotine dependence, cigarettes, uncomplicated
CPT/HCPCS: 51701; 96365; 96367; 96375; 96376; J7512

== ENCOUNTER 2020-08-09 08:23 | Emergency (ER) | payer OTHER | END 2020-08-09 09:10 | disposition left against medical advice (07) | LOC: BURERS 08:23 | DX: Z53.21 Procedure and treatment not carried out due to patient leaving prior to being seen by health care provider (principal) ==

== ENCOUNTER 2021-02-28 19:46 | Emergency (ER) | payer OTHER | END 2021-02-28 22:00 | disposition left against medical advice (07) | LOC: BURERS 19:46 | DX: Z53.21 Procedure and treatment not carried out due to patient leaving prior to being seen by health care provider (principal) ==

== ENCOUNTER 2021-05-19 22:12 | Emergency (ER) | payer OTHER ==
[2021-05-19] MEDS ORDERED: predniSONE 20 MG TAB ONE (23:04)
== END 2021-05-19 23:19 | disposition home or self-care (01) ==
LOC: BURERS 22:12
DX: J06.9 Acute upper respiratory infection, unspecified (principal); E11.9 Type 2 diabetes mellitus without complications; I10 Essential (primary) hypertension; F17.210 Nicotine dependence, cigarettes, uncomplicated
CPT/HCPCS: 99283; J7512

== ENCOUNTER 2021-07-20 08:43 | Emergency (ER) | payer OTHER ==
[2021-07-20] MEDS ORDERED: AMOXicillin 250 MG CAP ONE (09:02)
== END 2021-07-20 09:11 | disposition home or self-care (01) ==
LOC: BURERS 08:43
DX: K08.89 Other specified disorders of teeth and supporting structures (principal); I10 Essential (primary) hypertension; E11.9 Type 2 diabetes mellitus without complications
CPT/HCPCS: 99282

== ENCOUNTER 2021-08-30 22:13 | Emergency (ER) | payer MEDICAID, OTHER | END 2021-08-30 23:52 | disposition home or self-care (01) | LOC: BURERS 22:13 | DX: U07.1 COVID-19 (principal); E11.9 Type 2 diabetes mellitus without complications; I10 Essential (primary) hypertension; G43.909 Migraine, unspecified, not intractable, without status migrainosus; F17.200 Nicotine dependence, unspecified, uncomplicated | CPT/HCPCS: 87804; U0003; U0005 ==

== ENCOUNTER 2022-03-11 09:09 | Emergency (ER) | payer MEDICAID, OTHER | END 2022-03-11 09:44 | disposition home or self-care (01) | LOC: BURERS 09:09 | DX: J32.9 Chronic sinusitis, unspecified (principal); B96.89 Other specified bacterial agents as the cause of diseases classified elsewhere; J02.9 Acute pharyngitis, unspecified; G43.909 Migraine, unspecified, not intractable, without status migrainosus; F17.200 Nicotine dependence, unspecified, uncomplicated | CPT/HCPCS: 99283 ==

== ENCOUNTER 2022-05-18 11:14 | Emergency (ER) | payer MEDICAID | END 2022-05-18 12:30 | disposition home or self-care (01) | LOC: BURERS 11:14 | DX: J01.90 Acute sinusitis, unspecified (principal); E11.9 Type 2 diabetes mellitus without complications; I10 Essential (primary) hypertension; F17.210 Nicotine dependence, cigarettes, uncomplicated | CPT/HCPCS: 87804; 99283 ==

== ENCOUNTER 2024-02-12 18:06 | Emergency (ER) | payer MEDICAID, OTHER, SELFPAY ==
[2024-02-12] MEDS ORDERED: Dexamethasone 10 MG/ML VIAL ONE (19:03)
[2024-02-12] MEDS ORDERED: Bicillin LA 1.2 MILLION UNITS/2 ML SYRINGE ONE (19:04)
== END 2024-02-12 19:53 | disposition home or self-care (01) ==
LOC: BURERS 18:06
DX: J02.0 Streptococcal pharyngitis (principal); I10 Essential (primary) hypertension; E11.9 Type 2 diabetes mellitus without complications; F17.210 Nicotine dependence, cigarettes, uncomplicated
CPT/HCPCS: 87081; 87430; 96372; 99283; J0561; J1100